=== PATIENT | female | born 1955 | race Caucasian/White ===

== ENCOUNTER → 2018-09-27 | Day surgery (SDC) | payer BC ==
[~2018-09-27] MED LIST: FENTANYL CITRATE/PF 100MCG/2 ML INJ ONE; HYOSCYAMINE SULFATE 0.5 MG/ML INJ ONE; MIDAZOLAM HCL 2 MG/2 ML VIAL ONE; PANTOPRAZOLE SO40 MG PO; PROPOFOL IV EMULSION 10 MG/ML 50 ML VIAL ONE; SYNTHROID50 MCG PO
[2018-09-27 10:56] VITALS: BP 108/71
--- NOTE | 2018-09-27 13:05 | Operative Report ---
DATE OF PROCEDURE: September 27, 2018 REFERRING PHYSICIAN: CHANDU LIM M.D. PROCEDURE PERFORMED: Colonoscopy. INDICATIONS FOR COLONOSCOPY: Personal history of colon polyps, surveillance colonoscopy. MEDICATION: Patient was done under MAC. Please see anesthesiologist's note. PROCEDURE: With patient in the left lateral decubitus position, flexible fiberoptic Olympus colonoscope was inserted into the rectum with ease and advanced all the way to the cecum. It was then withdrawn slowly. Mucosa overlying the cecum, ascending colon and transverse colon appeared to be within normal limits. Some diverticular disease was noted to involve the descending and the sigmoid colon. There was a focal diverticulitis noted in the sigmoid colon. The scope was then retroflexed into the distal rectum and small internal hemorrhoids were noted, none of which was actively bleeding. The scope was then straightened out. Was subsequently withdrawn. Patient tolerated procedure well. IMPRESSION: 1. Diverticulosis. 2. Focal diverticulitis sigmoid colon. 3. Internal hemorrhoids, none actively bleeding. PLAN: Start Flagyl 500 mg 1 p.o. q.i.d. and Levaquin 500 mg 1 p.o. daily times 10 days. Patient might benefit from a followup colonoscopy in 3 to 5 years. Job#: [id number] GH cc:CHANDU LIM M.D.
== END | disposition home or self-care (01) ==
LOC: OR 07:48
PROVIDERS: ATTEND Internal Medicine Gastroenterology
DX: Z12.11 Encounter for screening for malignant neoplasm of colon (principal); K57.32 Diverticulitis of large intestine without perforation or abscess without bleeding; K64.8 Other hemorrhoids; E78.5 Hyperlipidemia, unspecified; E03.9 Hypothyroidism, unspecified; Z88.0 Allergy status to penicillin; Z88.2 Allergy status to sulfonamides; Z01.810 Encounter for preprocedural cardiovascular examination; Z80.0 Family history of malignant neoplasm of digestive organs
CPT/HCPCS: 45378; 93005; J1980; J2250

== ENCOUNTER → 2021-04-07 | Day surgery (SDC) | payer MEDICARE, OTHER ==
[2021-04-02 13:11] LABS: BASOPHILS % 0.5 % (0.0-1.0); EOSINOPHILS # (AUTO) 0.3 (0.0-0.4); EOSINOPHILS % 3.4 % (0.0-6.0); HEMATOCRIT 40.3 % (34.2-44.1); HEMOGLOBIN 13.1 g/dL (12.0-16.0); LYMPHOCYTES # (AUTO) 2.3 (1.0-3.2); LYMPHOCYTES % 30.7 % (18.0-39.1); MEAN CORPUSCULAR HEMOGLOBIN 30.1 pg (28-32); MEAN CORPUSCULAR HGB CONC 32.5 g/dL (31-35); MEAN CORPUSCULAR VOLUME 92.6 fL (81-99); MONOCYTES # (AUTO) 0.6 (0.2-0.8); MONOCYTES % 8.3 % (4.4-11.3); NEUTROPHILS # (AUTO) 4.2 (2.1-6.9); NEUTROPHILS % 56.7 % (38.7-80.0); PLATELET COUNT 310 x10e3/uL (140-360); RED BLOOD COUNT 4.35 x10e6/uL (3.6-5.1); RED CELL DISTRIBUTION WIDTH 13.2 % (11.7-14.4)
[~2021-04-07] MED LIST changes: +CRESTOR10 MG PO; +GLUCAGON FOR INJ 1 MG VIAL ONE; +LIDOCAINE HCL 2% LOCAL INJ 5 ML SDV VIAL INJ ONE; +PROPOFOL IV EMULSION 10 MG/ML 20 ML VIAL ONE; -PROPOFOL IV EMULSION 10 MG/ML 50 ML VIAL ONE
[2021-04-07 14:15] VITALS: BP 116/73
[2021-04-08 13:48] LABS: C DIFFICILE TOXIN A&B AMP PROB NEGATIVE (NEGATIVE); WBC,FECAL (FECAL LACTOFERRIN) NEGATIVE (NEGATIVE)
== END | disposition home or self-care (01) ==
LOC: OR 09:45
PROVIDERS: ATTEND Internal Medicine Gastroenterology
DX: K52.9 Noninfective gastroenteritis and colitis, unspecified (principal); D12.4 Benign neoplasm of descending colon; D12.5 Benign neoplasm of sigmoid colon; K57.30 Diverticulosis of large intestine without perforation or abscess without bleeding; K62.89 Other specified diseases of anus and rectum; K59.09 Other constipation; K64.8 Other hemorrhoids; K21.9 Gastro-esophageal reflux disease without esophagitis; E03.9 Hypothyroidism, unspecified; Z88.0 Allergy status to penicillin; Z88.2 Allergy status to sulfonamides; Z01.810 Encounter for preprocedural cardiovascular examination; Z01.812 Encounter for preprocedural laboratory examination; Z68.25 Body mass index [BMI] 25.0-25.9, adult; Z87.19 Personal history of other diseases of the digestive system; Z80.0 Family history of malignant neoplasm of digestive organs
CPT/HCPCS: 36415; 45380; 83630; 83993; 85025; 87045; 87177; 87328; 87493; 88305; 93005; J1610; J1980; J2001; J2704; 45378; J2250; J3010